=== PATIENT | male | born 1980 | race African-American/Black ===

== ENCOUNTER 2018-06-07 12:06 | Emergency (ER) | payer OTHER ==
[~2018-06-07] VITALS: Ht 176.5 cm; Wt 93.9 kg
[2018-06-07 12:30] VITALS: BP 144/95
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
[2018-06-07] MEDS ORDERED: Methocarbamol 500mg tab ORAL ONE (13:00)
[2018-06-07] MEDS ORDERED: Ketorolac 30mg Inj IM ONE (13:00)
[2018-06-07] MEDS ORDERED: ROBAXIN500 MG PO (13:05)
[2018-06-07] MEDS ORDERED: LIDOCAINE700 M1 TP (13:05)
[2018-06-07] MEDS ORDERED: IBUPROFEN600 MG ORAL (13:05)
[2018-06-07 13:30] VITALS: BP 125/70
== END 2018-06-07 13:30 | disposition home or self-care (01) ==
LOC: EMR 12:54
DX: M54.2 Cervicalgia (principal); V43.52XA Car driver injured in collision with other type car in traffic accident, initial encounter; Y92.410 Unspecified street and highway as the place of occurrence of the external cause
CPT/HCPCS: 96372; 99283; J1885